=== PATIENT | male | born 1965 | race Caucasian/White ===

== ENCOUNTER 2022-11-02 17:51 | Emergency (ER) | payer MEDICARE, MEDICAID, SELFPAY ==
[2022-11-02 18:42] VITALS: BP 125/82; PULSE 93; RESP 18; TEMP 37.2; O2SAT 98; BMI 24.4
--- NOTE | 2022-11-02 18:49 | ED_ITS ---
HPI - General Adult General Chief complaint: General Medical Stated complaint: Piece of steak stuck in throat Time Seen by Provider: 11/02/22 19:05 Source: patient Mode of arrival: ambulatory Limitations: no limitations History of Present Illness HPI narrative: Patient with hx of alcoholic cirrhosis with ascites for the 1st time after eating steak earlier feel stuck in his upper abdomen unable to drink or eat a nything since noon time. Never had similar problem in the past had endoscopy last year Related Data Allergies Allergy/AdvReac Type Severity Reaction Status Date / Time No Known Allergies Allergy Unverified 12/01/19 18:34 [No Known Allergies*] Review of Systems Review of Systems: Yes all other systems are reviewed and are negative [facility]LY [facility] Social History Social History Alcohol intake: current Alcohol intake frequency: holidays/special occasions only Smoked in Last 30 Days: No Use of substances other than those prescribed or required for medical reasons: No Advance Directives: No Advance Directives Information Provided: No Physical Exam ED Vital Signs: Vital Signs - 24 hr 11/02/22 18:42 11/02/22 19:14 Temperature 99.0 F 98.8 F Pulse Rate 93 97 Respiratory Rate 18 14 Blood Pressure 125/82 126/77 Pulse Oximetry 98 98 Oxygen Delivery Method Room Air Room Air BMI result Body Mass Index 24.4 Appearance: Alert. Oriented X3. No acute distress. ENT: Pharynx normal. Oral Mucosa moist Neck: Normal inspection. Neck supple. CVS: Normal heart rate and rhythm. Pulses normal. Respiratory: No respiratory distress. Equal air entry bilateral, no wheezing/rales/rhonchi Abdomen: Soft and nontender free fluid++. Bowel sounds are present, no mass palpable, no CVA tenderness Skin: Skin warm and dry. Normal skin color. Normal skin turgor. Extremities: No lower extremity edema. No calf tenderness Neuro: Oriented X 3. No motor deficit. Course Course Course Narrative: RME: 57 yold male with ascites presents to the ED for steak stuck in throat. patient states can't swallow fluids or foods since than. Patient failed PO challenge in the ED. Patient brought immeidatley to a room in the ED to work up. FOod bolus? Medical Decision Making Medical Decision Making MDM Narrative: Patient with steak piece impaction with history of achalasia. EZ gas was used and patient swallowed the gas bubble in feeling much better now and is able to drink fluids Discharge Plan Discharge Clinical Impression: Food impaction of esophagus Patient Disposition: Home, Self-Care Instructions: Food Impaction (ED) Additional Instructions: Chew well and eat small pieces Follow-up with insurance counselor for further evaluation Referrals: Mckayla Beavers MD [Physician] - 2 weeks Interventions: ED Discharge Assessment Last Done: 11/02/22 20:12 Discharge Date/Time: 11/02/22 20:14
[2022-11-02 19:14] VITALS: BP 126/77; PULSE 97; RESP 14; TEMP 37.1; O2SAT 98
--- NOTE | 2022-11-02 19:15 | PC.NURSE ---
Pt ca&ox3, no signs of distress. Pt denies chest pain and sob. Reports 6/10 constant throat pain after choking on a piece of steak during lunch. Plan of care ongoing.
== END 2022-11-02 20:14 | disposition home or self-care (01) ==
PROVIDERS: Emergency Provider Internal Medicine; PCP Physician Assistant Medical
DX: R09.89 Other specified symptoms and signs involving the circulatory and respiratory systems (principal)
CPT/HCPCS: 99283; 99284